=== PATIENT | male | born 1985 | race Caucasian/White ===

== ENCOUNTER 2022-09-28 14:02 | Emergency (ER) | payer OTHER ==
[~2022-09-28] VITALS: Ht 170.2 cm; Wt 77.6 kg
[2022-09-28 14:06] VITALS: BP 139/67
--- NOTE | 2022-09-28 14:13 | NUR ---
MARIAM TAMAYO TO ER CHAIR
--- NOTE | 2022-09-28 14:30 | NUR ---
ASSUMED PATIENT CARE, NURSING ASSESSMENT COMPLETED.
--- NOTE | 2022-09-28 14:42 | NUR ---
ATTEMPTED TO OBTAIN URINE SAMPLE, PT REPORTS HE CANNOT PEE. DR CARTER MADE AWARE
[2022-09-28] MEDS ORDERED: KETOROLAC 30 MG/ML VIAL IM ONE (15:00)
--- NOTE | 2022-09-28 15:13 | NUR ---
TRANSFERRED TO ER BED 9
[2022-09-28 15:44] LABS: BASOPHILS # (AUTO) 0.1 K/uL (0.00-0.22); BASOPHILS % (AUTO) 0.4 % (0.0-2.0); EOSINOPHILS % (AUTO) 0.1 % (0.0-4.0); HEMATOCRIT 45.5 % (36-52); HEMOGLOBIN 15.2 g/dL (12.0-18.0); LYMPHOCYTES # (AUTO) 1.2 K/uL (2.0-11.5); LYMPHOCYTES % (AUTO) 7.9 % (20.5-51.1); MEAN CORPUSCULAR HEMOGLOBIN 30 pg (27-31); MEAN CORPUSCULAR HGB CONC 33 g/dL (33-37); MEAN CORPUSCULAR VOLUME 90.4 fL (80-94); MONOCYTES # (AUTO) 0.8 K/uL (0.8-1.0); MONOCYTES % (AUTO) 5.8 % (1.7-9.3); NEUTROPHILS # (AUTO) 12.6 K/uL (1.8-7.7); NEUTROPHILS % (AUTO) 85.8 % (42.2-75.2); PLATELET COUNT (AUTO) 268 K/uL (140-450); RED BLOOD CELL COUNT(AUTO) 5.04 MIL/uL (4.20-6.10); WHITE BLOOD COUNT (AUTO) 14.6 K/uL (4.8-10.8)
[2022-09-28 16:04] LABS: ALBUMIN 4.3 g/dL (3.4-5.0); ANION GAP 9.6 (8-16); CARBON DIOXIDE 28.5 mmol/L (21-32); CREATININE 1.2 mg/dL (0.6-1.3); POTASSIUM 4.1 mmol/L (3.5-5.1); TOTAL BILIRUBIN 0.6 mg/dL (0.0-1.0)
[2022-09-28] MEDS ORDERED: NACL 0.9% 1,000 ML IV ONE (16:20)
[2022-09-28 17:47] LABS: APPEARANCE,URINE CLEAR (CLEAR); BILIRUBIN,URINE NEGATIVE (NEGATIVE); BLOOD, URINE 3+ (NEGATIVE); COLOR,URINE YELLOW (YELLOW); LEUKOCYTE ESTERASE ,URINE NEGATIVE (NEGATIVE); NITRITE, URINE NEGATIVE (NEGATIVE); UGLUCOSE NEGATIVE (NEGATIVE)
[2022-09-28 18:03] LABS: RBC,URINE 20-50 /HPF (0-5); WBC,URINE 0-5 /HPF (0-5)
[2022-09-28] MEDS ORDERED: IBUP-2213 PO (18:09)
[2022-09-28 18:20] VITALS: BP 125/67
--- NOTE | 2022-09-28 18:22 | NUR ---
DISPO AND MEDICAL DECISION MAKING DC HOME WITH AFTERCARE INSTRUCTIONS AND COPIES OF TEST RESULTS. PATIENT DENIES PAIN AT THIS TIME, VS WNL. DC HOME AMBULATORY, ACCOMPANIED BY .
== END 2022-09-28 18:20 | disposition home or self-care (01) ==
LOC: MED 14:02
DX: R10.9 Unspecified abdominal pain (principal); Z79.899 Other long term (current) drug therapy
CPT/HCPCS: 36415; 74176; 80053; 81001; 85025; 96360; 96372; 99285; J1885; J7030